=== PATIENT | female | born 1975 | race Caucasian/White ===

== ENCOUNTER 2018-04-13 21:50 | Emergency (ER) | payer OTHER ==
[2018-04-13] MEDS ORDERED: Sodium Chloride 0.9% 1000 ML 1,000 ML IV STA (22:38)
[2018-04-13] MEDS ORDERED: Zofran 4 MG/2 ML VIAL IV ONE (22:39)
--- NOTE | 2018-04-13 22:44 | ERPHSYRPT ---
- History of Present Illness Time Seen by Provider: 04/13/18 22:40 Historian: patient Exam Limitations: no limitations Patient Subjective Stated Complaint: Pt arrives to ER with a litany of c/o, including diffuse abdominal pain started today with tenderness to lower abdomen with palpation, chronic upper and lower back pain, new thoracic back pain, bloating, nausea without vomiting and constant heartburn since November when had gastric surgery, belching and gas, bilateral flank pain with tenderness to palpation. Pt requests for gallbladder to be checked out. States has had virk/ yellow stool this past weekend. Triage Nursing Assessment: see above Physician History: 42-year-old white female with history of fibromyalgia, GERD, anxiety, depression , who states that she's had 6 months of upper abdominal discomfort for which she is seen specialist in [place] and also has seen her doctor in [place] Dr. Gauthier. Arrives with complaint of upper abdominal discomfort she states today she's been having some pain feels like she has heartburn she's had nausea also pain in her back as well. Patient states that she has been worked up by a aerodynamic consultant but wants a second opinion. Past medical history includes fibromyalgia, GERD, anxiety, depression patient states she has a history of precancerous ovaries and cervix, pockets in her colon or small intestine, kidney stones hiatal hernia and osteopenia. Past surgical history includes hysterectomy kidney stones Timing/Duration: other (6 months worse since yesterday) Activities at Onset: none Quality: cramping Abdominal Pain Onset Location: other (Upper abdomen) Severity of Pain-Max: moderate Severity of Pain-Current: moderate Modifying Factors: Improves With: nothing Associated Symptoms: back, nausea, No chest pain, No diaphoresis, No diarrhea, No fever/chills, No fatigue, No headache, No heartburn, No loss of appetite, No neck pain, No rash, No shortness of breath, No syncope, No vomiting Previous symptoms: same symptoms as today (symptoms for 6 month states she has had multiple workups) Allergies/Adverse Reactions: Penicillins Allergy (Intermediate, Verified 04/13/18 22:23) swelling/ rash Home Medications: Desvenlafaxine Succinate [Pristiq] 100 mg PO DAILY 12/23/16 [History] Ranitidine HCl [Zantac] 150 mg PO BID 12/23/16 [History] clonazePAM [Klonopin] 1 mg PO DAILY 12/23/16 [History] Bupropion HCl 150 mg Sr [Wellbutrin SR 150 MG] 150 mg PO 04/13/18 [History ] Cyclobenzaprine HCl [Flexeril] 10 mg PO 04/13/18 [History] Metoclopramide HCl 5 mg [Reglan 5 MG] 5 mg PO TID 04/13/18 [History] Modafinil [Provigil] 100 mg PO 04/13/18 [History] PANTOPRAZOLE 40 mg Tablet [Protonix 40MG Tablet] 40 mg PO 04/13/18 [ History] Promethazine HCl 50 mg PO 04/13/18 [History] Sucralfate 1 gm [Carafate 1 GM] 1 g PO BID 04/13/18 [History] Hx Tetanus, Diphtheria Vaccination/Date Given: Yes Hx Influenza Vaccination/Date Given: No Hx Pneumococcal Vaccination/Date Given: No - Review of Systems Constitutional: No Fever, No Chills Eyes: No Symptoms Ears, Nose, & Throat: No Symptoms Respiratory: No Cough, No Dyspnea Cardiac: No Chest Pain, No Edema, No Syncope Abdominal/Gastrointestinal: Abdominal Pain (Epigastric and bilateral upper abd) Genitourinary Symptoms: Flank Pain (bilateral flank pain) Musculoskeletal: Back Pain (bilateral flank pain) Skin: No Rash Neurological: No Dizziness, No Focal Weakness, No Sensory Changes Psychological: No Symptoms Endocrine: No Symptoms All Other Systems: Reviewed and Negative - Past Medical History Pertinent Past Medical History: Yes Neurological History: No Pertinent History ENT History: No Pertinent History Cardiac History: No Pertinent History Respiratory History: No Pertinent History Endocrine Medical History: No Pertinent History Musculoskeletal History: Fibromyalgia GI Medical History: GERD, Other History: No Pertinent History Psycho-Social History: Anxiety, Depression Female Reproductive Disorders: Other Other Medical History: precancer to ovaries and cervix. "pockets in colon or small intestine". kidney stones. hiatal hernia. osteopenia. carpal tunnel bilateral - Past Surgical History Past Surgical History: Yes Neuro Surgical History: No Pertinent History Cardiac: No Pertinent History Respiratory: No Pertinent History Gastrointestinal: Other Genitourinary: Other Musculoskeletal: No Pertinent History Female Surgical History: Section, Hysterectomy Other Surgical History: kidney stones removed. gastric sugery - Social History Smoking Status: Current some day smoker How long have you smoked: 5 Exposure to second hand smoke: No Drug Use: none Patient Lives Alone: No - Female History Hx Now: No - Nursing Vital Signs Nursing Vital Signs: Initial Vital Signs Temperature 99.7 F 04/13/18 21:56 Pulse Rate 109 H 04/13/18 21:56 Respiratory Rate 18 04/13/18 21:56 Blood Pressure 139/68 04/13/18 21:56 O2 Sat by Pulse Oximetry 98 04/13/18 21:56 Pain Scale Pain Intensity 1 - Physical Exam General Appearance: no apparent distress, alert Eye Exam: PERRL/EOMI, eyes nml inspection Ears, Nose, Throat Exam: normal ENT inspection, pharynx normal, moist mucous membranes Neck Exam: normal inspection, non-tender, supple, full range of motion Respiratory Exam: normal breath sounds, lungs clear, No respiratory distress Cardiovascular Exam: regular rate/rhythm, normal heart sounds Gastrointestinal/Abdomen Exam: soft, tenderness (mild upper abdominal tenderness ), No mass Back Exam: normal inspection, normal range of motion, No CVA tenderness, No vertebral tenderness Extremity Exam: normal inspection, normal range of motion, pelvis stable Neurologic Exam: alert, oriented x 3, cooperative, fitness manager II-XII nml as tested, normal mood/affect, nml cerebellar function, sensation nml, No motor deficits Skin Exam: normal color, warm, dry SpO2 Interpretation: normal (98%) SpO2: 98 Oxygen Delivery: Room Air - Course Nursing assessment & vital signs reviewed: Yes EKG Interpreted by Me: RATE (95 bpm), Sinus Rhythm, NORMAL AXIS, Other (EKG: Sinus rhythm, 95 bpm, normal axis, no acute ST or T wave changes. Normal EKG) - CT Exams Abdomen/Pelvis CT Interpretation: Tele-radiologist Report (CT abdomen and pelvis: impression: 1. Moderate stool 2. Possible small pelvic free fluid.) Ordered Tests: Active Orders 24 hr Category Date Time Status EKG-ER Only STAT Care 04/13/18 22:38 Active IV Insertion STAT Care 04/13/18 22:38 Active ABDOMEN AND PELVIS W/0 CONTRAS [CT] Stat Exams 04/14/18 00:18 Taken AMYLASE Stat Lab 04/13/18 22:38 Completed CBC W DIFF Stat Lab 04/13/18 23:25 Completed CMP Stat Lab 04/13/18 22:38 Completed LIPASE Stat Lab 04/13/18 22:38 Completed UA W/RFX UR CULTURE Stat Lab 04/13/18 22:51 Completed Urine Triage Profile Stat Lab 04/13/18 22:51 Completed Medication Summary Discontinued Medications Generic Name Dose Route Start Last Admin Trade Name Brayden PRN Reason Stop Dose Admin Sodium Chloride 1,000 mls @ 999 mls/hr 04/13/18 22:38 04/14/18 00:49 Sodium Chloride 0.9% 1000 Ml IV 04/13/18 23:38 Infused .Q1H1M STA Infusion Sodium Chloride Confirm 04/13/18 22:52 Sodium Chloride 0.9% 1000 Ml Administered 04/13/18 22:53 Dose 1,000 mls @ ud .ROUTE .STK-MED ONE Morphine Sulfate 4 mg 04/14/18 00:17 04/14/18 00:31 Morphine Sulfate 4 Mg Inj IV 04/14/18 00:18 4 mg STAT ONE Administration Morphine Sulfate Confirm 04/14/18 00:20 Morphine Sulfate 4 Mg Inj Administered 04/14/18 00:21 Dose 4 mg .ROUTE .STK-MED ONE Ondansetron HCl 4 mg 04/13/18 22:39 04/13/18 23:16 Zofran 4 Mg/2 Ml Vial IV 04/13/18 22:40 4 mg STAT ONE Administration Ondansetron HCl Confirm 04/13/18 22:52 Zofran 4 Mg/2 Ml Vial Administered 04/13/18 22:53 Dose 4 mg .ROUTE .STK-MED ONE Promethazine HCl 12.5 mg 04/13/18 23:20 04/13/18 23:48 Phenergan 25 Mg Inj IV 04/13/18 23:21 12.5 mg STAT ONE Administration Promethazine HCl Confirm 04/13/18 23:35 Phenergan 25 Mg Inj Administered 04/13/18 23:36 Dose 25 mg .ROUTE .STK-MED ONE Lab/Rad Data: Laboratory Result Diagrams 04/13/18 23:25 04/13/18 22:38 Laboratory Results 04/13/18 04/13/18 04/13/18 Range/Units 23:25 22:51 22:51 WBC 5.3 (4.0-10.5) K/mm3 RBC 3.73 L (4.1-5.4) M/mm3 Hgb 10.7 L (12.0-16.0) gm/dl Hct 33.6 L (35-47) % MCV 90.1 (78-100) fl MCH 28.6 (26-32) pg MCHC 31.8 L (32-36) g/dl RDW 14.2 H (11.5-14.0) % Plt Count 262 (150-450) K/mm3 MPV 9.0 (6-9.5) fl Gran % 37.7 (36.0-66.0) % Eos # (Auto) 0.14 (0-0.5) Absolute Lymphs (auto) 2.66 (1.0-4.6) Absolute Monos (auto) 0.45 (0.0-1.3) Lymphocytes % 50.6 H (24.0-44.0) % Monocytes % 8.6 (0.0-12.0) % Eosinophils % 2.7 (0.00-5.0) % Basophils % 0.4 (0.0-0.4) % Absolute Granulocytes 1.99 (1.4-6.9) Basophils # 0.02 (0-0.4) Sodium (137-145) mmol/L Potassium (3.5-5.1) mmol/L Chloride (98-107) mmol/L Carbon Dioxide (22-30) mmol/L Anion Gap (5-15) MEQ/L BUN (7-17) mg/dL Creatinine (0.52-1.04) mg/dL Estimated GFR ML/MIN Glucose (74-106) mg/dL Calcium (8.4-10.2) mg/dL Total Bilirubin (0.2-1.3) mg/dL AST (14-36) U/L ALT (0-35) U/L Alkaline Phosphatase (38-126) U/L Serum Total Protein (6.3-8.2) g/dL Albumin (3.5-5.0) g/dL Amylase (30-110) U/L Lipase (23-300) U/L Ur Collection Type VOID Urine Color YELLOW (YELLOW) Urine Appearance CLEAR (CLEAR) Urine pH 6.0 (5-6) Ur Specific [place] 1.005 (1.005-1.025) Urine Protein NEGATIVE (Negative) Urine Ketones NEGATIVE (NEGATIVE) Urine Blood NEGATIVE (0-5) [place]/ul Urine Nitrite NEGATIVE (NEGATIVE) Urine Bilirubin NEGATIVE (NEGATIVE) Urine Urobilinogen NORMAL (0-1) mg/dL Ur Leukocyte Esterase NEGATIVE (NEGATIVE) Urine Culture Reflexed NO (NO) Urine Glucose NEGATIVE (NEGATIVE) mg/dL Urine Opiates Level NEGATIVE (NEGATIVE) Ur Methadone NEGATIVE (NEGATIVE) Urine Barbiturates NEGATIVE (NEGATIVE) Ur Phencyclidine (PCP) NEGATIVE (NEGATIVE) Urine Amphetamine NEGATIVE (NEGATIVE) U Benzodiazepine Level NEGATIVE (NEGATIVE) Urine Cocaine NEGATIVE (NEGATIVE) Urine Marijuana (THC) NEGATIVE (NEGATIVE) Specimen Received 04/13/18 2230 04/13/18 Range/Units 22:38 WBC (4.0-10.5) K/mm3 RBC (4.1-5.4) M/mm3 Hgb (12.0-16.0) gm/dl Hct (35-47) % MCV (78-100) fl MCH (26-32) pg MCHC (32-36) g/dl RDW (11.5-14.0) % Plt Count (150-450) K/mm3 MPV (6-9.5) fl Gran % (36.0-66.0) % Eos # (Auto) (0-0.5) Absolute Lymphs (auto) (1.0-4.6) Absolute Monos (auto) (0.0-1.3) Lymphocytes % (24.0-44.0) % Monocytes % (0.0-12.0) % Eosinophils % (0.00-5.0) % Basophils % (0.0-0.4) % Absolute Granulocytes (1.4-6.9) Basophils # (0-0.4) Sodium 141 (137-145) mmol/L Potassium 3.1 L (3.5-5.1) mmol/L Chloride 105 (98-107) mmol/L Carbon Dioxide 30 (22-30) mmol/L Anion Gap 9.2 (5-15) MEQ/L BUN 6 L (7-17) mg/dL Creatinine 0.69 (0.52-1.04) mg/dL Estimated GFR > 60.0 ML/MIN Glucose 89 (74-106) mg/dL Calcium 8.7 (8.4-10.2) mg/dL Total Bilirubin 0.10 L (0.2-1.3) mg/dL AST 26 (14-36) U/L ALT 135 H (0-35) U/L Alkaline Phosphatase 147 H (38-126) U/L Serum Total Protein 6.2 L (6.3-8.2) g/dL Albumin 3.8 (3.5-5.0) g/dL Amylase 90 (30-110) U/L Lipase 54 (23-300) U/L Ur Collection Type Urine Color (YELLOW) Urine Appearance (CLEAR) Urine pH (5-6) Ur Specific [place] (1.005-1.025) Urine Protein (Negative) Urine Ketones (NEGATIVE) Urine Blood (0-5) [place]/ul Urine Nitrite (NEGATIVE) Urine Bilirubin (NEGATIVE) Urine Urobilinogen (0-1) mg/dL Ur Leukocyte Esterase (NEGATIVE) Urine Culture Reflexed (NO) Urine Glucose (NEGATIVE) mg/dL Urine Opiates Level (NEGATIVE) Ur Methadone (NEGATIVE) Urine Barbiturates (NEGATIVE) Ur Phencyclidine (PCP) (NEGATIVE) Urine Amphetamine (NEGATIVE) U Benzodiazepine Level (NEGATIVE) Urine Cocaine (NEGATIVE) Urine Marijuana (THC) (NEGATIVE) Specimen Received - Progress Progress: improved Progress Note: 04/14/18 02:06 42-year-old white female who arrives with complaint of back pain, suprapubic pain, epigastric pain, heartburn, symptoms going on for approximately 6 months he states this evening this became much worse and the pain was actually in the epigastric region where she initially stated that she was having pain, Labs were obtained including CBC CMP UA these were all essentially normal urine drug screen was unremarkable patient was given IV normal saline, Zofran, Phenergan she stated on recheck that she was still having some pain in lower abdomen. Patient was given 4 mg of morphine IV. CT of the abdomen and pelvis was obtained this was remarkable for moderate amount of stool and possible small pelvic free fluid. Patient markedly improved after 4 mg of morphine. Patient has had extensive workup by several gastroenterologists as well as the family doctor. She is on Klonopin home. Patient also states she is on Carafate, Protonix, metoclopramide at home. Patient feeling much better she is quite relieved that there is no horrible abnormalities on her CT scan she was quite worried about gallbladder. In the emergency room amylase lipase are within normal limits there was no ductal dilatation or pancreatic duct dilatation on CT of the abdomen. Will plan to discharge patient she is to continue her medications as at home. Will write for a minimal amount of [place] for this patient. She is to follow-up with Dr. Gauthier her family doctor. patient was noted to have moderate amount of stool in her bowel on CT she states she has Ale lax at home it was recommended that she use this. - Departure Time of Disposition: 02:10 Departure Disposition: Home Clinical Impression: Chronic abdominal pain, exacerbation of chronic abdominal pain Condition: Fair Critical Care Time: No Referrals: SATHISH GAUTHIER MD [Primary Care Provider] - Instructions: Acute Abdomen (Belly Pain), Adult (DC) Additional Instructions: Return home. Medications as prescribed by your family doctor. Clear fluids only 24-48 hours if abdominal pain. Ale lax one scoop in 8 ounces of water orally daily you have this medication at home. [place] as directed. Follow-up with Dr. Gauthier. Return for acute distress or for severe symptoms. Prescriptions: Hydrocodone/Acetaminophen [[place] 5-325 Tablet] 1 tab PO Q4-6HPRN PRN #6 tablet MDD 6 tablets PRN Reason: Pain
[2018-04-13] MEDS ORDERED: Sodium Chloride 0.9% 1000 ML 1,000 ML ONE (22:52)
[2018-04-13] MEDS ORDERED: Zofran 4 MG/2 ML VIAL ONE (22:52)
[2018-04-13] MEDS ORDERED: Phenergan 25 MG INJ IV ONE (23:20)
[2018-04-13 23:30] LABS: BASOPHIL % 0.4 % (0.0-0.4); Basophil (Absolute #) 0.02 (0-0.4); Eosinophil % 2.7 % (0.00-5.0); Eosinophil (Absolute #) 0.14 (0-0.5); Granulocyte Absolute (ANC) 1.99 (1.4-6.9); Granulocytes % 37.7 % (36.0-66.0); Hematocrit 33.6 % (35-47); Hemoglobin 10.7 gm/dl (12.0-16.0); Lymphocyte (Absolute #) 2.66 (1.0-4.6); Lymphocytes % 50.6 % (24.0-44.0); Mean Cell Volume 90.1 fl (78-100); Mean Corpuscular Hgb Concent. 31.8 g/dl (32-36); Monocyte (Absolute #) 0.45 (0.0-1.3); Monocytes % 8.6 % (0.0-12.0); Platelet Count 262 K/mm3 (150-450); Red Blood Count 3.73 M/mm3 (4.1-5.4); Red Cell Distribution Width 14.2 % (11.5-14.0); White Blood Count 5.3 K/mm3 (4.0-10.5)
[2018-04-13 23:32] LABS: Amphetamine,Urine NEGATIVE (NEGATIVE); Barbiturate,Urine NEGATIVE (NEGATIVE); Benzodiazepine,Urine NEGATIVE (NEGATIVE); Cocaine,Urine NEGATIVE (NEGATIVE); Methadone,Urine NEGATIVE (NEGATIVE); Opiate,Urine NEGATIVE (NEGATIVE); PCP,Urine NEGATIVE (NEGATIVE); THC,Urine NEGATIVE (NEGATIVE)
[2018-04-13 23:34] LABS: Appearance CLEAR (CLEAR); Bilirubin NEGATIVE (NEGATIVE); Blood NEGATIVE Ery/ul (0-5); Glucose NEGATIVE (NEGATIVE); Ketones NEGATIVE (NEGATIVE); Leukocyte Esterase NEGATIVE (NEGATIVE); Nitrite NEGATIVE (NEGATIVE); Protein,Urine Dip NEGATIVE (Negative); Specific Gravity 1.005 (1.005-1.025); Urobilinogen NORMAL mg/dL (0-1)
[2018-04-13] MEDS ORDERED: Phenergan 25 MG INJ ONE (23:35)
[2018-04-13 23:44] LABS: Mean Corpuscular Hemoglobin 28.6 pg (26-32)
[2018-04-13 23:49] LABS: ALBUMIN 3.8 g/dL (3.5-5.0); ALKALINE PHOSPHATASE 147 U/L (38-126); AMYLASE 90 U/L (30-110); ANION GAP 9.2 MEQ/L (5-15); BLOOD UREA NITROGEN 6 mg/dL (7-17); CHLORIDE 105 mmol/L (98-107); Calcium 8.7 mg/dL (8.4-10.2); Carbon Dioxide 30 mmol/L (22-30); Creatinine 1 0.69 mg/dL (0.52-1.04); Glucose 89 mg/dL (74-106); LIPASE 54 U/L (23-300); Potassium 3.1 mmol/L (3.5-5.1); SGOT/AST 26 U/L (14-36); SGPT/ALT 135 U/L (0-35); SODIUM 141 mmol/L (137-145); Total Protein 6.2 g/dL (6.3-8.2)
[2018-04-14] MEDS ORDERED: MORPHINE SULFATE 4 MG INJ IV ONE (00:17)
[2018-04-14] MEDS ORDERED: MORPHINE SULFATE 4 MG INJ ONE (00:20)
[2018-04-14 01:56] VITALS: BP 121/91; PULSE 84
[2018-04-14 02:01] VITALS: O2SAT 98
[2018-04-14] MEDS ORDERED: NORCO 5/325 MG PO ONE (02:13)
[2018-04-14] MEDS ORDERED: NORCO 5/325 MG ONE (02:16)
--- NOTE | 2018-04-14 09:15 | XRAY ---
Indication: Abdominal pain. Bloating. Multiple contiguous axial images obtained through the abdomen and pelvis without contrast as ordered. Comparison: July 29, 2013. Lung bases are clear. Heart is not enlarged. Noncontrasted stomach and bowel loops appear nonobstructed. New epigastric metallic density presumed iatrogenic. Normal appendix. There is now moderate diffuse scattered colonic fecal debris throughout. Tiny pelvic free fluid presumed physiologic from rupture/leaking cyst. No free air. Again partial hysterectomy. Remaining liver, gallbladder, pancreas, spleen, adrenal glands, kidneys, ureters, bladder, and aorta appear unremarkable for noncontrast exam. Osseous structures intact. Impression: 1. Fecal stasis without obstruction. 2. Tiny pelvic free fluid presumed physiologic from rupture/leaking cyst. Comment: Preliminary interpretation was made by [facility]. No discrepancy. CT DI 9.90
== END 2018-04-14 02:25 | disposition home or self-care (01) ==
LOC: ED 21:50
DX: R10.9 Unspecified abdominal pain (principal); R10.13 Epigastric pain; M54.9 Dorsalgia, unspecified; Z79.899 Other long term (current) drug therapy
CPT/HCPCS: 36000; 36415; 74176; 80053; 80307; 81002; 82150; 83690; 85025; 93005; 96360; 96361; 96374; 96375; 99284; J2270; J2405; J2550; A9270-GY